=== PATIENT | female | born 1965 | race Caucasian/White ===

== ENCOUNTER 2017-03-28 21:27 | Emergency (ER) | payer MEDICAID ==
[2017-03-28 22:09] LABS: BASOPHILS 0.1 % (0-2); EOSINOPHILS 0.2 % (0-7); HEMATOCRIT 35.5 % (36.0-48.0); HEMOGLOBIN 10.4 g/dL (12-16); IMMATURE GRANULOCYTES 0.2 % (0-5); LYMPHOCYTES 7.8 % (15-50); MCH 20.9 pg (26.0-34.0); MCHC 29.3 g/dL (31.0-37.0); MCV 71.4 fL (80.0-100.0); MEAN PLATELET VOLUME 10.2 fL (7.4-10.4); MONOCYTES 4.6 % (2-11); NEUTROPHILS 87.1 % (40-80); PLATELET COUNT 370 10x3/uL (130-400); RBC 4.97 10x6/uL (4.00-5.40); RDW 17.8 % (11.5-14.5); WBC 9.5 10x3/uL (4.8-10.8)
[2017-03-28 22:30] LABS: ALBUMIN 3.3 g/dL (3.4-5.0); ANION GAP 12.4 mmol/L (8-16); BILIRUBIN - TOTAL 0.6 mg/dL (0.2-1.3); CALCIUM 9.4 mg/dL (8.5-10.1); CREATININE - SERUM 1.2 mg/dL (0.6-1.3); POTASSIUM - SERUM 4.4 mmol/L (3.5-5.1); PROTEIN - SERUM 7.8 g/dL (6.4-8.2)
[2017-03-28 22:56] LABS: APPEARANCE CLEAR (CLEAR); BILIRUBIN NEGATIVE (NEGATIVE); COLOR YELLOW (YELLOW); EPITHELIAL CELLS 0-5 /hpf (0-5); GLUCOSE NEGATIVE (NEGATIVE); KETONE NEGATIVE (NEGATIVE); LEUKOCYTE ESTERASE TRACE (NEGATIVE); NITRITE NEGATIVE (NEGATIVE); PROTEIN NEGATIVE (NEGATIVE); RED CELLS - URINE 0-5 /hpf (0-5); SPECIFIC GRAVITY 1.025 (1.005-1.020); UROBILINOGEN NORMAL (NORMAL); WHITE CELLS - URINE 0-5 /hpf (0-5)
[2017-03-28 22:57] LABS: BACTERIA FEW /hpf (NONE SEEN)
== END 2017-03-29 00:20 | disposition home or self-care (01) ==
LOC: D.ER 21:27
PROVIDERS: Emergency Medicine
DX: R10.9 Unspecified abdominal pain (principal); R11.10 Vomiting, unspecified; D64.9 Anemia, unspecified; R82.71 Bacteriuria; I10 Essential (primary) hypertension; F17.200 Nicotine dependence, unspecified, uncomplicated

== ENCOUNTER 2017-09-19 20:50 | Emergency (ER) | payer MEDICAID ==
[2017-09-19 21:15] LABS: BASOPHILS 0.1 % (0-2); EOSINOPHILS 0.3 % (0-7); HEMATOCRIT 40.7 % (36.0-48.0); HEMOGLOBIN 12.4 g/dL (12-16); IMMATURE GRANULOCYTES 0.3 % (0-5); LYMPHOCYTES 13.1 % (15-50); MCH 23.2 pg (26.0-34.0); MCHC 30.5 g/dL (31.0-37.0); MCV 76.2 fL (80.0-100.0); MEAN PLATELET VOLUME 10.2 fL (7.4-10.4); MONOCYTES 5.2 % (2-11); PLATELET COUNT 320 10x3/uL (130-400); RBC 5.34 10x6/uL (4.00-5.40); RDW 18.4 % (11.5-14.5); WBC 9.6 10x3/uL (4.8-10.8)
[2017-09-19 21:38] LABS: ALBUMIN 3.4 g/dL (3.4-5.0); ANION GAP 13.3 mmol/L (8-16); BILIRUBIN - TOTAL 0.56 mg/dL (0.2-1.3); CALCIUM 9.6 mg/dL (8.5-10.1); CARBON DIOXIDE 27.7 mmol/L (21.0-32.0); PROTEIN - SERUM 7.8 g/dL (6.4-8.2)
[2017-11-14] MEDS ORDERED: VITAMIN D31000 UNI2 PO (14:19)
[2017-11-14] MEDS ORDERED: LISINOPRIL-HCTZ1 TA2 PO (14:19)
[2017-11-14] MEDS ORDERED: LEVOTHYROXINE50 MCG PO (14:20)
[2017-11-15 08:19] VITALS: BMI 39.2
== END 2017-09-19 22:48 | disposition home or self-care (01) ==
LOC: D.ER 20:50
PROVIDERS: Emergency Medicine
DX: R11.10 Vomiting, unspecified (principal); R10.9 Unspecified abdominal pain; I10 Essential (primary) hypertension

== ENCOUNTER 2017-11-15 07:50 | Day surgery (SDC) | payer MEDICAID ==
[2017-11-14 15:22] LABS: BASOPHILS 0.3 % (0-2); EOSINOPHILS 0.9 % (0-7); HEMATOCRIT 38.7 % (36.0-48.0); HEMOGLOBIN 12.3 g/dL (12-16); IMMATURE GRANULOCYTES 0.3 % (0-5); LYMPHOCYTES 25.8 % (15-50); MCHC 31.8 g/dL (31.0-37.0); MCV 85.1 fL (80.0-100.0); MEAN PLATELET VOLUME 9.6 fL (7.4-10.4); MONOCYTES 6.3 % (2-11); NEUTROPHILS 66.4 % (40-80); PLATELET COUNT 331 10x3/uL (130-400); RBC 4.55 10x6/uL (4.00-5.40); RDW 23.6 % (11.5-14.5); WBC 6.4 10x3/uL (4.8-10.8)
[2017-11-14 15:39] LABS: ANION GAP 14.7 mmol/L (8-16); CALCIUM 10.2 mg/dL (8.5-10.1); CARBON DIOXIDE 27.2 mmol/L (21.0-32.0); POTASSIUM - SERUM 3.9 mmol/L (3.5-5.1)
[~2017-11-15] VITALS: Ht 157.5 cm; Wt 97.1 kg
--- NOTE | ~2017-11-15 | OP ---
PATIENT NAME: PRECIOUS JARVIS MEDICAL RECORD: [id number] :63 LOCATION:D.OPS ADMISSION DATE: SURGEON: MARK CHASE MD DATE OF OPERATION: 11/15/2017 PREOPERATIVE DIAGNOSES: 1. Gallstones. 2. Hypertension. POSTOPERATIVE DIAGNOSES: 1. Gallstones. 2. Hypertension. PROCEDURE: Laparoscopic cholecystectomy. SURGEON: Mark Chase MD REPORT OF PROCEDURE: The patient's abdomen was prepped and draped in sterile fashion. A cutdown was made on the superior aspect of the umbilicus, 0 Vicryls were placed in the fascia bilaterally and the fascia was incised with a 15-blade. I then bluntly entered the peritoneal cavity and placed a 12-mm Mason port. Under direct visualization, a 5-mm trocar was placed in the epigastrium and 2 more 5-mm trocars were placed in the right subcostal region. The gallbladder was elevated and there were some inflammatory adhesions that were present that appeared to be chronic in nature. These were all teased down carefully with blunt dissection. The cystic artery and cystic duct were dissected free and these were clipped proximally and distally and ligated in standard fashion. The gallbladder was then taken off the liver bed using electrocautery and placed in the right upper quadrant. Any bleeding from the liver bed was then treated with electrocautery. There was some bleeding from some of the omental fat and this was treated with clips. At the conclusion of the case, there was no sign of any internal bleeding. At this point, the ports and insufflation were then removed and the gallbladder was taken out through the umbilicus. The umbilical fascia was closed with interrupted 0 Vicryls times 3. The wounds were then irrigated out with normal saline and infused with 10 mL of 0.25% Marcaine with epinephrine. The skin incisions were all closed with subcutaneous 5-0 Monocryl and dressed appropriately. COMPLICATIONS: None. CONDITION: Stable. ANESTHESIA: General endotracheal and local. BLOOD LOSS: Minimal. TRANSINT:[id number] Voice Confirmation ID: [id number] DOCUMENT ID: [id number] OPERATIVE REPORT [id number] PRECIOUS JARVIS MARK CHASE MD at 0956 CC: BERNA MUNOZ MD [id number] DICTATION DATE: 11/15/17 1003 RAT TRAPPER: 11/15/17 1245 [facility] [place] 11/15/17 [place] [id number] [facility] [place] [id number]
[~2017-11-15 07:50] MED LIST: LEVOTHYROXINE50 MCG PO; LISINOPRIL-HCTZ1 TA2 PO; VITAMIN D31000 UNI2 PO
[2017-11-15 08:19] VITALS: BP 116/58; Ht 157.5 cm; Wt 97.1 kg
[2017-11-15 08:29] LABS: HCG URINE NEGATIVE (NEGATIVE)
[2017-11-15] MEDS ORDERED: HYDROCODONE-APA1 TAB PO (10:00)
== END 2017-11-15 13:10 | disposition home or self-care (01) ==
LOC: D.OPS 07:50 → D.PAN 10:30 → D.OPS 11:00 → D.PAN 11:00 → D.OPS 12:30
PROVIDERS: Surgery
DX: K80.80 Other cholelithiasis without obstruction (principal); I10 Essential (primary) hypertension; Z01.812 Encounter for preprocedural laboratory examination

== ENCOUNTER 2018-02-01 08:49 | Emergency (ER) | payer MEDICAID ==
[2017-11-15 08:19] VITALS: BMI 39.2
--- NOTE | ~2018-02-01 | CN ---
PATIENT NAME:PRECIOUS JARVIS MEDICAL RECORD: [id number] : 63 LOCATION:D.ER ADMIT DATE: ACCOUNT: [id number] CONSULTING PHYSICIAN: ROSI ROMANO MD REFERRING PHYSICIAN: HANSEL CROWDER MD DATE OF CONSULTATION: 02/01/2018 This is a consultation note addendum. CHIEF COMPLAINT: Vomiting. HISTORY OF PRESENT ILLNESS: I was asked to see this patient by Dr. Crowder. The patient has had recurrent nausea and vomiting. She has actually undergone a cholecystectomy due to the nausea, vomiting, and abdominal pain. Prior to cholecystectomy by Dr. Chase, the pain was mainly in the right upper quadrant. It is now more centrally located in the periumbilical area as well as in the epigastrium. It is intermittent. It may be associated with food intake. I think the patient has a number of issues. I personally reviewed the CT report. I have discussed this case personally with Dr. Crowder. The patient has not been utilizing her lap band effectively. She has been eating in such a manner that really makes the lap band of no use whatsoever. It was put in about 10 years ago. The patient realizes that the way that she eats it is essentially making the lap band ineffective as a weight loss technique. She eats food and then immediately drinks liquids to wash the food through the band. I have examined the band on the CT images and it appears to be in good position. The band is so deep that I am fearful that it may be difficult to access it without utilizing ultrasound. I think it was sutured down to the fascia, which is fairly deep in this lady. She has been considering having lap band removed and having conversion to a lap sleeve. I think a lap sleeve gastrectomy would be a better bariatric procedure for her. She has several other issues. I was asked to see her to determine whether she had intestinal ischemia. Certainly, her body habitus is not the type that I would expect with someone with intestinal ischemia. Some of the small bowel in the central abdomen does have some "dirty fat" associated with it and this could indicate an inflammatory or an infectious process. She really has not had much by way of diarrhea. I think perhaps she does have a subacute case gastroenteritis, either viral or bacterial. I have discussed this with Dr. Crowder and we are going to treat her as though she does have a gastroenteritis. Some other interesting things about her are that she has a rash, which is a butterfly type rash over the face. She has been worked up twice for lupus and she does not have lupus. The rash is due to rosacea. The patient has a lot of fluid in her stomach distal to the band. Now, she states that she did not have oral contrast only had a little bit of GI cocktail prior to her undergoing the CT scan. She should have essentially had a stomach that was completely empty distal to the band. That makes me concerned that she may have some degree of gastroparesis or some type of gastric motility issue. This is something that can be worked up as an outpatient. She states that she is not essentially constipated, not necessarily have any diarrhea either. She has had some myalgias recently. Food intake seems to aggravate her nausea and vomiting as well as abdominal pain, but it can be any kind of food. Nothing really alleviates. CONSULT REPORT [id number] PRECIOUS JARVIS This is a consultation note addendum. For the typed portion of the consult note, please see the chart. This would include the past medical and surgical history, allergies, current medications, social history as well as family history. REVIEW OF SYSTEMS: No headaches, no cough, no shortness of breath. The review of systems is negative other than as is described above. PHYSICAL EXAMINATION: GENERAL: The patient does not appear acutely ill. She does appear chronically ill. The entire physical examination was performed in the presence of a health care provider. VITAL SIGNS: Reviewed. EARS: External ears appear normal. EYES: Extraocular movements are intact. FACE: She has a butterfly type red rash. PSYCHIATRIC: Normal affect. NEUROLOGIC: Nonfocal, no lethargy. Answers questions appropriately, moves all extremities well. BACK: No thoracic kyphosis. LYMPHATICS: No lymphangitic streaking of the exposed extremities. ABDOMEN: Relatively nontender. The lap band port is in the epigastrium and is very deep. I cannot tell you whether the port has flipped are not either. No peritonitis on examination. NEUROLOGIC: Nonfocal, no lethargy. The patient answers questions appropriately, moves all extremities well. IMPRESSION 1. Recurrent intractable nausea and vomiting. 2. Abdominal pain of uncertain etiology. 3. I doubt intestinal ischemia. 4. Possible viral or bacterial gastroenteritis. 5. Lap bands not being used in a manner that is contributing to weight loss or maintaining weight loss. PLAN: I have discussed with Dr. Crowder. I asked the patient to follow up with me, with Dr. Chase or doctor in the office. The patient will be dismissed home on antibiotics as well as antiemetics. TRANSINT:[id number] Voice Confirmation ID: [id number] DOCUMENT ID: [id number] ROSI ROMANO MD at 1042 CC: BERNA MUNOZ MD, GUILLERMINA CHASE TUCKER, JAMES J MD and MANSI,[id number] DICTATION DATE: 02/01/18 1342 [facility] L[facility]EL CLINICIAN: 02/01/18 1422 [facility] ER 02/01/18 [place] [id number] [place] [address]
[~2018-02-01 08:49] MED LIST changes: +HYDROCODONE-APA1 TAB PO
[2018-02-01 09:44] LABS: ALBUMIN 3.6 g/dL (3.4-5.0); ANION GAP 11.2 mmol/L (8-16); BILIRUBIN - TOTAL 0.66 mg/dL (0.2-1.3); CALCIUM 9.6 mg/dL (8.5-10.1); CARBON DIOXIDE 29.2 mmol/L (21.0-32.0); CREATININE - SERUM 1.1 mg/dL (0.6-1.3); POTASSIUM - SERUM 4.4 mmol/L (3.5-5.1); PROTEIN - SERUM 7.9 g/dL (6.4-8.2)
[2018-02-01 10:04] LABS: BASOPHILS 0.1 % (0-2); EOSINOPHILS 0.1 % (0-7); HEMATOCRIT 49.1 % (36.0-48.0); HEMOGLOBIN 14.3 g/dL (12-16); IMMATURE GRANULOCYTES 0.3 % (0-5); LYMPHOCYTES 7.5 % (15-50); MCH 30.6 pg (26.0-34.0); MCHC 29.1 g/dL (31.0-37.0); MCV 105.1 fL (80.0-100.0); MEAN PLATELET VOLUME 12.6 fL (7.4-10.4); MONOCYTES 2.5 % (2-11); NEUTROPHILS 89.5 % (40-80); RBC 4.67 10x6/uL (4.00-5.40); WBC 8.9 10x3/uL (4.8-10.8)
[2018-02-01 10:05] LABS: PLATELET COUNT 223 10x3/uL (130-400)
[2018-02-01 10:46] LABS: APPEARANCE HAZY (CLEAR); BILIRUBIN NEGATIVE (NEGATIVE); COLOR DK YELLOW (YELLOW); GLUCOSE NEGATIVE (NEGATIVE); KETONE MODERATE mg/dL (NEGATIVE); NITRITE NEGATIVE (NEGATIVE); PROTEIN NEGATIVE (NEGATIVE); SPECIFIC GRAVITY 1.015 (1.005-1.020); UROBILINOGEN NORMAL (NORMAL)
[2018-02-01 10:53] LABS: BACTERIA MODERATE /hpf (NONE SEEN); MUCUS >1+ /lpf (NONE SEEN); RED CELLS - URINE 0-5 /hpf (0-5); WHITE CELLS - URINE 0-5 /hpf (0-5)
== END 2018-02-01 13:55 | disposition home or self-care (01) ==
LOC: D.ER 08:49
PROVIDERS: Family Medicine
DX: K52.9 Noninfective gastroenteritis and colitis, unspecified (principal); N39.0 Urinary tract infection, site not specified

== ENCOUNTER 2018-02-20 09:03 | Day surgery (SDC) | payer MEDICAID ==
[~2018-02-20] VITALS: Ht 157.5 cm; Wt 95.5 kg
--- NOTE | ~2018-02-20 | OP ---
PATIENT NAME: PRECIOUS JARVIS MEDICAL RECORD: [id number] :63 LOCATION:D.OPS ADMISSION DATE: SURGEON: ISAIAS MILLS MD DATE OF OPERATION: 02/20/2018 SURGEON: Isaias Mills MD PREOPERATIVE DIAGNOSES: 1. Gastroesophageal reflux disease. 2. Dysphagia. 3. History of gastric band. 4. Morbid obesity. 5. Essential hypertension. POSTOPERATIVE DIAGNOSES: 1. Gastroesophageal reflux disease. 2. Dysphagia. 3. History of gastric band. 4. Morbid obesity. 5. Essential hypertension. PROCEDURE PERFORMED: EGD with biopsy. ANESTHESIA: Total intravenous anesthesia. COMPLICATIONS: None. SPECIMENS: 1. Duodenum. 2. Antrum. 3. Stomach. 4. GE junction. ESTIMATED BLOOD LOSS: 10 cc. OPERATIVE COURSE: After consent was obtained, the patient was taken to the endoscopy suite. A timeout was taken to confirm the correct patient and procedure. Hurricaine Lane was administered. Total intravenous anesthesia was given. The patient was placed in left lateral decubitus position. The scope was advanced through the bite block. The scope under direct endoscopic vision was passed through the oropharynx and posterior to the epiglottis. The scope was advanced under direct vision through the esophagus. There was a small hiatal hernia noted. The band was in good position. The gastric pouch superior to the band was markedly dilated. The scope was able to be traversed through the gastric band opening and into the stomach. The stomach was insufflated. Scope was then advanced to the pylorus and the pylorus was intubated. The duodenum was inspected. The duodenum appeared within normal limits. Multiple biopsies were taken of the duodenum. The scope was then withdrawn to the prepyloric region and antrum. Multiple antral biopsies were taken. There was some mild antritis noted as well as some mild gastritis. Multiple biopsies were then taken of the stomach body. The scope was retroflexed. The gastric band appeared to be in good position. The stomach was desufflated. The scope was then withdrawn through the gastric band. There were abnormalities at the Z line noted with linear esophagitis. Multiple biopsies were taken at GE junction. At this time, the scope was slowly withdrawn to the esophagus. No abnormalities of OPERATIVE REPORT [id number] PRECIOUS JARVIS the esophagus were identified. The scope was removed. At the end of the case, all needle and instrument counts were correct. No complications occurred. The patient tolerated the procedure well and was transferred to the recovery room in satisfactory condition. TRANSINT:[id number] Voice Confirmation ID: [id number] DOCUMENT ID: [id number] ISAIAS MILLS MD at 1513 CC: [id number] DICTATION DATE: 02/20/18 1248 WHIP OPERATOR: 02/20/18 1303 [facility] [place] 02/20/18 [place] [id number]
[2018-02-20 10:00] VITALS: Ht 157.5 cm; Wt 95.5 kg
[2018-02-20 10:44] LABS: BASOPHILS 0.5 % (0-2); EOSINOPHILS 1.6 % (0-7); HEMATOCRIT 38.5 % (36.0-48.0); HEMOGLOBIN 12.6 g/dL (12-16); IMMATURE GRANULOCYTES 0.2 % (0-5); LYMPHOCYTES 23.8 % (15-50); MCH 29.7 pg (26.0-34.0); MCHC 32.7 g/dL (31.0-37.0); MCV 90.8 fL (80.0-100.0); MEAN PLATELET VOLUME 10.3 fL (7.4-10.4); MONOCYTES 8.5 % (2-11); NEUTROPHILS 65.4 % (40-80); PLATELET COUNT 264 10x3/uL (130-400); RBC 4.24 10x6/uL (4.00-5.40); WBC 4.3 10x3/uL (4.8-10.8)
[2018-02-20 11:06] LABS: HCG URINE NEGATIVE (NEGATIVE)
[2018-02-20 11:23] LABS: CARBON DIOXIDE 27.2 mmol/L (21.0-32.0); CREATININE - SERUM 0.9 mg/dL (0.6-1.3); POTASSIUM - SERUM 4.2 mmol/L (3.5-5.1)
== END 2018-02-20 13:57 | disposition home or self-care (01) ==
LOC: D.OPS 09:03
PROVIDERS: Anesthesiology; Surgery
DX: K21.9 Gastro-esophageal reflux disease without esophagitis (principal); R13.10 Dysphagia, unspecified; Z98.84 Bariatric surgery status; E66.01 Morbid (severe) obesity due to excess calories; Z68.38 Body mass index [BMI] 38.0-38.9, adult; I10 Essential (primary) hypertension; Z01.812 Encounter for preprocedural laboratory examination

== ENCOUNTER 2018-02-25 07:23 | Day surgery (SDC) | payer MEDICAID ==
[~2018-02-25] VITALS: Ht 157.5 cm; Wt 100.2 kg
[2018-02-25 07:48] VITALS: BP 138/49; Ht 157.5 cm; Wt 100.2 kg
[2018-02-25 08:08] LABS: HEMATOCRIT 37.6 % (36.0-48.0); HEMOGLOBIN 12.2 g/dL (12-16); MCH 29.3 pg (26.0-34.0); MCHC 32.4 g/dL (31.0-37.0); MCV 90.4 fL (80.0-100.0); MEAN PLATELET VOLUME 10.4 fL (7.4-10.4); RBC 4.16 10x6/uL (4.00-5.40); WBC 4.3 10x3/uL (4.8-10.8)
[2018-02-25 08:27] LABS: ANION GAP 13.8 mmol/L (8-16); CALCIUM 8.8 mg/dL (8.5-10.1); CARBON DIOXIDE 25.3 mmol/L (21.0-32.0); POTASSIUM - SERUM 4.1 mmol/L (3.5-5.1)
[2018-02-25] MEDS ORDERED: HYDROCODON-ACE1 EAC7 PO (11:53)
== END 2018-02-25 15:45 | disposition home or self-care (01) ==
LOC: D.OPS 07:23 → D.PAN 10:00 → D.OPS 15:45
PROVIDERS: Anesthesiology
DX: R13.10 Dysphagia, unspecified (principal); R11.10 Vomiting, unspecified; E66.01 Morbid (severe) obesity due to excess calories; I10 Essential (primary) hypertension; E03.9 Hypothyroidism, unspecified; Z01.812 Encounter for preprocedural laboratory examination

== ENCOUNTER 2020-01-20 19:33 | Inpatient (IN) | payer BC ==
[~2020-01-20] VITALS: Ht 157.5 cm; Wt 115.9 kg
[~2020-01-20 19:33] MED LIST changes: +HYDROCODON-ACE1 EAC7 PO
--- NOTE | 2020-01-20 19:50 | NUR ---
WENT TO CLINIC EARLIER TODAY AND WAS INFORMED TO COME TO ER.
[2020-01-20 20:11] LABS: BASOPHILS 0.1 % (0-2); EOSINOPHILS 0.7 % (0-7); HEMATOCRIT 39.6 % (36.0-48.0); HEMOGLOBIN 13.1 g/dL (12-16); IMMATURE GRANULOCYTES 0.2 % (0-5); LYMPHOCYTES 11.2 % (15-50); MCHC 33.1 g/dL (31.0-37.0); MCV 90.8 fL (80.0-100.0); MEAN PLATELET VOLUME 10.5 fL (7.4-10.4); NEUTROPHILS 77.8 % (40-80); PLATELET COUNT 241 10x3/uL (130-400); RBC 4.36 10x6/uL (4.00-5.40); RDW 12.4 % (11.5-14.5); WBC 8.8 10x3/uL (4.8-10.8)
[2020-01-20 20:35] LABS: CALC OSMOLALITY 277 mosm/kg (275-300); CALCIUM 9.2 mg/dL (8.5-10.1); CARBON DIOXIDE 29.1 mmol/L (21.0-32.0); CHLORIDE - SERUM 103 mmol/L (98-107); CREATININE - SERUM 1.2 mg/dL (0.6-1.3); GLUCOSE 87 mg/dL (74-106); POTASSIUM - SERUM 4.2 mmol/L (3.5-5.1); SODIUM 139 mmol/L (136-145); UREA NITROGEN 15 mg/dL (7-18); eGFR NON AFRICAN AMERICAN 49 mL/min (90-120)
[2020-01-20 20:52] LABS: APTT 25.9 SECONDS (22.8-39.4); INR 0.98 (0.85-1.17); PROTIME 12.9 SECONDS (11.6-15.0)
[2020-01-20 20:54] LABS: ALBUMIN 3.4 g/dL (3.4-5.0); ALKALINE PHOSPHATASE 82 U/L (30-120); ALT (SGPT) 28 U/L (10-68); BILIRUBIN - TOTAL 0.62 mg/dL (0.2-1.3); CKMB 0.9 U/L (0.0-3.6); CREATINE KINASE 103 UL (21-215); PROTEIN - SERUM 7.5 g/dL (6.4-8.2)
[2020-01-20 20:55] LABS: TROPONIN-I < 0.017 ng/mL (0.000-0.060)
[2020-01-20 21:00] VITALS: BP 128/58
[2020-01-20 22:00] VITALS: BP 126/71
[2020-01-20 23:00] VITALS: BP 118/63
[2020-01-21] VITALS (7 sets, daily range): BP systolic 123–153; BP diastolic 62–76; Ht 157.5 cm; Wt 115.9 kg
--- NOTE | 2020-01-21 00:02 | NUR ---
PT LYING SUPINE IN BED RESTING, BREATHS EVEN, NO ACUTE DISTRESS NOTED, WILL CONTINUE TO MONITOR.
--- NOTE | 2020-01-21 04:26 | NUR ---
PT SITTING UP IN BED, PT DENIES ANY NEEDS AT THIS TIME, WILL CONTINUE TO MONITOR.
[2020-01-21 05:14] LABS: ALKALINE PHOSPHATASE 71 U/L (30-120); ALT (SGPT) 24 U/L (10-68); BILIRUBIN - TOTAL 0.99 mg/dL (0.2-1.3); CALC OSMOLALITY 275 mosm/kg (275-300); CALCIUM 8.6 mg/dL (8.5-10.1); CARBON DIOXIDE 24.6 mmol/L (21.0-32.0); CHLORIDE - SERUM 105 mmol/L (98-107); CKMB 0.2 U/L (0.0-3.6); CREATINE KINASE 82 UL (21-215); GLUCOSE 100 mg/dL (74-106); MAGNESIUM - SERUM 1.9 mg/dL (1.8-2.4); PHOSPHOROUS 3.6 mg/dL (2.5-4.9); POTASSIUM - SERUM 3.6 mmol/L (3.5-5.1); PROTEIN - SERUM 6.9 g/dL (6.4-8.2); SODIUM 138 mmol/L (136-145); TROPONIN-I < 0.017 ng/mL (0.000-0.060); UREA NITROGEN 12 mg/dL (7-18); eGFR NON AFRICAN AMERICAN 61 mL/min (90-120)
--- NOTE | 2020-01-21 07:03 | NUR ---
REPORT TO SYD MCPHERSON.
[2020-01-21 07:14] LABS: BASOPHILS 0.1 % (0-2); EOSINOPHILS 0.3 % (0-7); HEMATOCRIT 36.6 % (36.0-48.0); HEMOGLOBIN 11.8 g/dL (12-16); IMMATURE GRANULOCYTES 0.1 % (0-5); LYMPHOCYTES 15.8 % (15-50); MCH 29.1 pg (26.0-34.0); MCHC 32.2 g/dL (31.0-37.0); MCV 90.1 fL (80.0-100.0); MEAN PLATELET VOLUME 10.2 fL (7.4-10.4); MONOCYTES 9.9 % (2-11); NEUTROPHILS 73.8 % (40-80); PLATELET COUNT 222 10x3/uL (130-400); RBC 4.06 10x6/uL (4.00-5.40); RDW 12.7 % (11.5-14.5); WBC 6.8 10x3/uL (4.8-10.8)
--- NOTE | 2020-01-21 19:40 | NUR ---
SITTING UP IN BED. ALERT AND ORIENTED X4. VERY TALKATIVE. RESP EVEN AND NONLABORED. OFFERED TELEMETRY BUT REFUSES. REPORTS LAST BM YESTERDAY NORMAL. AMBULATORY. NS @ 75 MLHR INFUSING IN RT AC WITHOUT DIFF. DENIES NEEDS. SR ELEVATED X2. CL IN REACH.
--- NOTE | 2020-01-21 20:35 | NUR ---
MEDICATED WITH TORADOL FOR C/O LT SHOULDER/SIDE PAIN 6. CL IN REACH. NO DISTRESS. AT BEDSIDE. PT DOING WORK ON HER COMPUTER.
[2020-01-22 01:29] VITALS: BP 106/38
--- NOTE | 2020-01-22 02:02 | NUR ---
RESTING QUIETLY ON LT SIDE. NO DISTRESS. RESP NONLABORED. CL IN REACH.
[2020-01-22 05:53] VITALS: BP 126/61
[2020-01-22 06:21] LABS: BASOPHILS 0.2 % (0-2); EOSINOPHILS 0.8 % (0-7); HEMATOCRIT 36.5 % (36.0-48.0); HEMOGLOBIN 11.9 g/dL (12-16); IMMATURE GRANULOCYTES 0.2 % (0-5); LYMPHOCYTES 13.8 % (15-50); MCH 29.5 pg (26.0-34.0); MCHC 32.6 g/dL (31.0-37.0); MCV 90.3 fL (80.0-100.0); MEAN PLATELET VOLUME 10.5 fL (7.4-10.4); MONOCYTES 10.2 % (2-11); NEUTROPHILS 74.8 % (40-80); PLATELET COUNT 210 10x3/uL (130-400); RBC 4.04 10x6/uL (4.00-5.40); RDW 12.3 % (11.5-14.5); WBC 5.2 10x3/uL (4.8-10.8)
[2020-01-22 06:40] LABS: ALBUMIN 2.7 g/dL (3.4-5.0); ANION GAP 11.4 mmol/L (8-16); BILIRUBIN - TOTAL 0.85 mg/dL (0.2-1.3); CALCIUM 9.5 mg/dL (8.5-10.1); CARBON DIOXIDE 27.2 mmol/L (21.0-32.0); CREATININE - SERUM 1.1 mg/dL (0.6-1.3); MAGNESIUM - SERUM 1.9 mg/dL (1.8-2.4); PHOSPHOROUS 3.8 mg/dL (2.5-4.9); POTASSIUM - SERUM 3.6 mmol/L (3.5-5.1); PROTEIN - SERUM 6.6 g/dL (6.4-8.2)
--- NOTE | 2020-01-22 08:00 | NUR ---
SLEEPING THIS MORNING, WANTING TO GO HOME. NO CHEST PAIN, NO STOMACH PAIN.
[2020-01-22 08:30] VITALS: BP 138/72
[2020-01-22] MEDS ORDERED: NITROQUICK0.4 MG SL (12:19)
[2020-01-22] MEDS ORDERED: FLAGYL500 MG PO (12:20)
[2020-01-22] MEDS ORDERED: LEVAQUIN750 MG PO (12:20)
[2020-01-22 13:52] VITALS: BP 135/91
[2020-01-22] MEDS ORDERED: GABAPENTIN300 MG PO (15:53)
[2020-01-22] MEDS ORDERED: VALTREX1000 MG PO (15:53)
--- NOTE | 2020-01-22 16:45 | NUR ---
DISCHARGE INSTRUCTION GONE OVER WITH PATIENT AND HER . QUESTIONS ANSWERED, IV OUT. TAKEN OUT VIA WHEELCHAIR.
== END 2020-01-22 16:45 | disposition home or self-care (01) | DRG 596 ==
LOC: D.ER 19:33 → D.MS 01-21 12:12
PROVIDERS: Family Medicine; ADMIT Internal Medicine Nephrology; ATTEND Internal Medicine Nephrology
DX: B02.9 Zoster without complications (principal); K57.92 Diverticulitis of intestine, part unspecified, without perforation or abscess without bleeding; E03.9 Hypothyroidism, unspecified; I10 Essential (primary) hypertension